=== PATIENT | male | born 1980 | race Caucasian/White ===

== ENCOUNTER 2021-07-12 09:23 | Day surgery (SDC) | payer OTHER, SELFPAY ==
[2021-07-12] VITALS (10 sets, daily range): BP systolic 124–153; BP diastolic 51–97; PULSE 78–91; RESP 16–20; TEMP 36.3–37.4; O2SAT 97–100; BMI 38.7
--- NOTE | 2021-07-12 | DI.RAD.S_ITS ---
PROCEDURE: XR ANKLE LT 2V INDICATIONS: LT ANKLE FIXATION TECHNIQUE: 2 views of the ankle were acquired. COMPARISON: [facility], [place], XR ANKLE 3+ VIEWS LEFT, 06/05/2021, 14:16. FINDINGS: There is interval medial lateral malleolar fixation. Good anatomic alignment is present. Hardware is intact. IMPRESSION: Bimalleolar fixation with good anatomic alignment. Dictated by: Soraida Connre M.D. on 07/12/2021 at 13:23 Approved by: Soraida Conner M.D. on 07/12/2021 at 13:24
[2021-07-12 09:59] LABS: COVID19 -Nasal RAPID POSITIVE (Negative)
--- NOTE | 2021-07-12 10:07 | PM.PREOP ---
Pre-operative Note COVID-19 COVID-19 status: Positive Result date/Date tested (Pos, Neg/Pending): 07/12/21 Interval Note History & Physical reviewed/Exam performed by Physician: Yes Changes to H&P: No H&P completed within 30 days and has changed as indicated here:: Patient tested positive for COVID. Asymptomatic. Case moved to the hospital. Indicated for surgery for ankle fracture.
[2021-07-12] MEDS: ACETAMINOPHEN 325 MG TABLET 975 MG PO (10:12)
[2021-07-12] MEDS: GABAPENTIN 300 MG CAPSULE PO (10:12)
[2021-07-12] MEDS: LACTATED RINGERS 1,000 ML 42 ML IV (10:12)
[2021-07-12] MEDS: CEFAZOLIN 2 GM/20 ML SYRINGE IV (11:41)
--- NOTE | 2021-07-12 11:58 | SUR.OPER ---
Addendum entered by Camille Wheat R.N. 07/12/21 11:59: Gel pad under patients right lower leg and heel. Prior to OR, patients glasses and cell phone placed in patient belongings bag in pre-op area. Original Note: Supine on padded OR bed, head on pillow, arms secured on padded arm boards at <90 degrees abduction, legs uncrossed, safety belt at lower torso, tape over blanket over right lower leg. Superior bump under left hip, left leg in control of the Surgeon.
[2021-07-12] MEDS: BUPIVACAINE 0.25% (PF) 30 ML, EPINEPHrine 0.15 MG INJ (12:15)
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
[2021-07-12] MEDS: OXYCODONE IR 5 MG TABLET PO (13:18)
--- NOTE | 2021-07-12 13:27 | SUR.PHASEI ---
Pt awake, minimal pain, VSS, no nausea. Dr Mcclain to bedside spoke with pt. Pt w/o complaints.
--- NOTE | 2021-07-12 15:36 | SUR.PHASEII ---
Late entry: 1345 pt ready to go, attempted to stand, unable to bear wgt. Pt brought to room 5 in [facility]PD. L eg elevated and iced. D/C instructions discussed, voiced an understanding. [place] called and updated. Pt not able to bear weight till 1510. Pt wanting to go home, [place] called, available for picker operator, pt left unit in stable condition and denied any pain.
== END 2021-07-12 15:20 | disposition home or self-care (01) ==
PROVIDERS: Referring Provider Orthopaedic Surgery Foot and Ankle Surgery; Visit Provider Orthopaedic Surgery Foot and Ankle Surgery
PROC: (CPT 27827; principal; 2021-07-12 10:30)
DX: S82.875A Nondisplaced pilon fracture of left tibia, initial encounter for closed fracture (principal); S82.55XA Nondisplaced fracture of medial malleolus of left tibia, initial encounter for closed fracture; V89.2XXA Person injured in unspecified motor-vehicle accident, traffic, initial encounter; U07.1 COVID-19; F17.210 Nicotine dependence, cigarettes, uncomplicated
CPT/HCPCS: 27827; 27766; 73600; 76000; 87635; J0171; J0690; J1100; J1885; J2250; J2704